=== PATIENT | male | born 1955 | race Caucasian/White ===

== ENCOUNTER 2017-11-12 08:31 | Day surgery (SDC) | payer OTHER ==
[~2017-11-12 08:31] MED LIST: EPHEDrine SULFATE 50 MG/5 ML SYG
[2017-11-12 09:24] LABS: ADD MAN DIFF? NO
[2017-11-12 09:26] LABS: WHITE BLOOD COUNT 7.4 10^3/ul (4.8-10.8)
[2017-11-12 09:26] LABS: BASOPHILS % 0.5 % (0.0-2.0); EOSINOPHILS # 0.7 10^3/ul (0.0-0.5); EOSINOPHILS % 8.8 % (0.0-7.0); HEMATOCRIT 34.6 % (42.0-52.0); HEMOGLOBIN 11.5 g/dl (14.0-18.0); LYMPHOCYTES # 1.7 10^3/ul (0.8-2.9); LYMPHOCYTES % 23.1 % (15.0-51.0); MEAN CORPUSCULAR HEMOGLOBIN 28.5 pg (29.0-33.0); MEAN CORPUSCULAR HGB CONC 33.2 g/dl (32.0-37.0); MEAN CORPUSCULAR VOLUME 85.6 fl (82.0-101.0); MEAN PLATELET VOLUME 10.9 fl (7.4-10.4); MONOCYTE # 0.7 10^3/ul (0.3-0.9); NEUTROPHIL # 4.2 10^3/ul (1.6-7.5); NEUTROPHILS % 57.5 % (39.0-77.0); PLATELET COUNT 205 10^3/UL (140-415); RED BLOOD COUNT 4.04 10^6/ul (4.70-6.10); RED CELL DISTRIBUTION WIDTH 12.7 % (11.5-14.5)
[2017-11-12] MEDS: hydrALAzine 20 MG INJ IV (09:41)
[2017-11-12 09:42] LABS: ALANINE AMINOTRANSFERASE 45 IU/L (13-69); ALBUMIN 3.7 g/dl (3.3-4.9); ALBUMIN/GLOBULIN RATIO 1.08; ALKALINE PHOSPHATASE 83 IU/L (42-121); ANION GAP 15 (8-16); ASPARTATE AMINO TRANSFERASE 36 IU/L (15-46); BILIRUBIN,INDIRECT 0.1 mg/dl (0-1.1); BILIRUBIN,TOTAL 0.1 mg/dl (0.2-1.3); CARBON DIOXIDE 28 mmol/L (21-31); CHLORIDE 106 mmol/L (97-110); GLUCOSE 84 mg/dl (70-220); TOTAL PROTEIN 7.1 g/dl (6.1-8.1)
[2017-11-12 09:43] LABS: CALCIUM 8.5 mg/dl (8.4-10.2)
[2017-11-12 09:46] LABS: BLOOD UREA NITROGEN 62 mg/dl (7-20); POTASSIUM 5.2 mmol/L (3.5-5.1); SODIUM 144 mmol/L (135-144)
[2017-11-12 09:47] LABS: INR 0.92; PARTIAL THROMBOPLASTIN TIME 29.9 Sec (25.0-35.0); PROTIME 12.4 Sec (11.9-14.9)
[2017-11-12] MEDS ORDERED: LIDOCAINE 1% (MPF) 30 ML INJ (10:24)
[2017-11-12] MEDS ORDERED: BUPIVACAINE 0.25% (MPF) 30 ML INJ (10:25)
[2017-11-12] MEDS ORDERED: CEFAZOLIN 1 GM INJ (10:44)
[2017-11-12] MEDS ORDERED: MIDAZOLAM 1 MG/ML 2 ML INJ (10:44)
[2017-11-12] MEDS ORDERED: PROPOFOL 20 ML ×2 (10:44→11:57)
[2017-11-12] MEDS ORDERED: FENTAnyl 50 MCG/ML VIAL (10:44)
[2017-11-12] MEDS ORDERED: ROPIVACAINE 0.2% 20 ML VIAL (10:45)
[2017-11-12] MEDS ORDERED: LOSARTAN 50 MG TAB PO (11:00)
[2017-11-12] MEDS ORDERED: POTASSIUM CHLORIDE (SR) 8 MEQ CAP PO (11:00)
[2017-11-12] MEDS ORDERED: ASPIRIN (EC) 81 MG TAB PO (11:00)
[2017-11-12] MEDS ORDERED: LISINOPRIL 20 MG TAB PO (11:00)
[2017-11-12] MEDS ORDERED: OXYCODONE/ACETAMINOPHEN (5/325) TAB PO ×2 (11:30)
[2017-11-12] MEDS ORDERED: HYDROmorphONE (0.2 MG/ML) 10ML SYG IV ×3 (11:30)
[2017-11-12] MEDS ORDERED: hydrALAzine 20 MG INJ IV (11:30)
[2017-11-12] MEDS ORDERED: ONDANSETRON 4 MG INJ IV (11:30)
[2017-11-12] MEDS: HEPARIN 1000 UNITS/ML 10 ML INJ (11:39)
[2017-11-12] MEDS: GELATIN SIZE 100 SPONGE (11:46)
[2017-11-12] MEDS: THROMBIN 5000 UNIT VIAL (11:47)
[2017-11-12] MEDS ORDERED: MINOXIDIL 2.5 MG TAB PO (13:00)
[2017-11-12] MEDS ORDERED: GLUCOSE GEL 15 GRAM TUBE PO ×2 (13:30)
[2017-11-12] MEDS ORDERED: GLUCOSE GEL 15 GRAM TUBE BUCCAL (13:30)
[2017-11-12] MEDS ORDERED: DEXTROSE 50% 50 ML SYRINGE IV ×2 (13:30)
[2017-11-12] MEDS ORDERED: GLUCAGON 1 MG INJ IM (13:30)
[2017-11-12] MEDS ORDERED: FUROSEMIDE 40 MG TAB PO (18:00)
[2017-11-12] MEDS ORDERED: GLIMEPIRIDE 4 MG TAB PO (18:00)
[2017-11-12] MEDS ORDERED: INSULIN GLARGINE [LANtus] 3 ML PEN SC (21:00)
[2017-11-13] MEDS ORDERED: AMLODIPINE 10 MG TAB PO (09:00)
== END 2017-11-12 13:55 | disposition home or self-care (01) ==
LOC: SDS 08:31
DX: I12.0 Hypertensive chronic kidney disease with stage 5 chronic kidney disease or end stage renal disease (principal); N18.6 End stage renal disease; E11.9 Type 2 diabetes mellitus without complications
CPT/HCPCS: 36821; 71045; 80053; 82962; 85025; 85610; 85730; 93005

== ENCOUNTER 2018-07-02 10:29 | Day surgery (SDC) | payer MEDICARE, OTHER ==
[2018-07-02] MEDS ORDERED: LIDOCAINE 1% (STERILE-PAK) 30 ML INJ (11:08)
[2018-07-02] MEDS ORDERED: GELATIN SIZE 100 SPONGE (11:08)
[2018-07-02] MEDS ORDERED: HEPARIN 1000 UNITS/ML 10 ML INJ (11:09)
[2018-07-02] MEDS ORDERED: THROMBIN 5000 UNIT VIAL (11:09)
[2018-07-02 11:30] LABS: ADD MAN DIFF? NO
[2018-07-02 11:38] LABS: WHITE BLOOD COUNT 6.5 10^3/ul (4.8-10.8)
[2018-07-02 11:38] LABS: BASOPHIL # 0.1 10^3/ul (0.0-0.1); BASOPHILS % 0.8 % (0.0-2.0); EOSINOPHILS # 0.5 10^3/ul (0.0-0.5); EOSINOPHILS % 7.5 % (0.0-7.0); HEMOGLOBIN 11.7 g/dl (14.0-18.0); LYMPHOCYTES # 2.1 10^3/ul (0.8-2.9); LYMPHOCYTES % 32.4 % (15.0-51.0); MEAN CORPUSCULAR HEMOGLOBIN 30.2 pg (29.0-33.0); MEAN CORPUSCULAR HGB CONC 33.4 g/dl (32.0-37.0); MEAN CORPUSCULAR VOLUME 90.2 fl (82.0-101.0); MEAN PLATELET VOLUME 11.1 fl (7.4-10.4); MONOCYTE # 0.6 10^3/ul (0.3-0.9); MONOCYTES % 8.9 % (0.0-11.0); NEUTROPHIL # 3.3 10^3/ul (1.6-7.5); NEUTROPHILS % 50.2 % (39.0-77.0); PLATELET COUNT 233 10^3/UL (140-415); RED BLOOD COUNT 3.88 10^6/ul (4.70-6.10); RED CELL DISTRIBUTION WIDTH 12.3 % (11.5-14.5)
[2018-07-02] MEDS ORDERED: hydrALAzine 20 MG INJ (11:43)
[2018-07-02] MEDS: LIDOCAINE 1% (MPF) 30 ML INJ INJ (11:45)
[2018-07-02 11:51] LABS: ALANINE AMINOTRANSFERASE 31 IU/L (13-69); ALBUMIN 4.5 g/dl (3.3-4.9); ALKALINE PHOSPHATASE 49 IU/L (42-121); ASPARTATE AMINO TRANSFERASE 26 IU/L (15-46); BILIRUBIN,INDIRECT 0.3 mg/dl (0-1.1); BILIRUBIN,TOTAL 0.3 mg/dl (0.2-1.3); CALCIUM 9.6 mg/dl (8.4-10.2); CARBON DIOXIDE 27 mmol/L (21-31); CHLORIDE 98 mmol/L (97-110); Estimated GFR 8 mL/min (>60); GLUCOSE 110 mg/dl (70-220); SODIUM 142 mmol/L (135-144); TOTAL PROTEIN 7.5 g/dl (6.1-8.1)
[2018-07-02] MEDS ORDERED: FENTAnyl 50 MCG/ML VIAL (11:52)
[2018-07-02] MEDS ORDERED: MIDAZOLAM 1 MG/ML 2 ML INJ (11:52)
[2018-07-02] MEDS ORDERED: ROPIVACAINE 0.2% 20 ML VIAL (11:52)
[2018-07-02] MEDS ORDERED: PROPOFOL 20 ML (11:52)
[2018-07-02 11:57] LABS: INR 0.87; PROTIME 11.9 Sec (11.9-14.9); PT RATIO 0.9
[2018-07-02 12:00] LABS: BLOOD UREA NITROGEN 71 mg/dl (7-20); CREATININE 6.68 mg/dl (0.61-1.24)
[2018-07-02] MEDS ORDERED: OXYCODONE/ACETAMINOPHEN (5/325) TAB PO ×2 (12:00)
[2018-07-02] MEDS ORDERED: hydrALAzine 20 MG INJ IV (12:00)
[2018-07-02] MEDS ORDERED: DIPHENHYDRAMINE 50 MG INJ IV (12:00)
[2018-07-02] MEDS ORDERED: MEPERIDINE 25 MG INJ IV (12:00)
[2018-07-02] MEDS ORDERED: HYDROmorphONE 1 MG/5 ML IV SYRINGE IV ×3 (12:00)
[2018-07-02] MEDS ORDERED: ONDANSETRON 4 MG INJ IV ×2 (12:00→14:00)
[2018-07-02 12:02] LABS: ANION GAP 17 (5-13)
[2018-07-02] MEDS ORDERED: CEFAZOLIN 1 GM INJ (12:29)
[2018-07-02] MEDS ORDERED: HYDROCODONE/APAP (5/325) TAB PO (14:00)
[2018-07-02] MEDS ORDERED: ACETAMINOPHEN 325 MG TAB PO (14:00)
== END 2018-07-02 15:32 | disposition home or self-care (01) ==
LOC: SDS 10:29
DX: I12.0 Hypertensive chronic kidney disease with stage 5 chronic kidney disease or end stage renal disease (principal); E11.22 Type 2 diabetes mellitus with diabetic chronic kidney disease; N18.6 End stage renal disease; Z99.2 Dependence on renal dialysis; Z79.84 Long term (current) use of oral hypoglycemic drugs; I25.10 Atherosclerotic heart disease of native coronary artery without angina pectoris
CPT/HCPCS: 36821; 71045; 80053; 82962; 85025; 85610; 85730; 93005

== ENCOUNTER 2019-01-08 20:58 | Inpatient (IN) | payer MEDICARE, OTHER ==
[2019-01-08 21:41] LABS: ABNORMAL IP MESSAGE 1; HEMATOCRIT 19.4 % (42.0-52.0); MEAN CORPUSCULAR HEMOGLOBIN 30.4 pg (29.0-33.0); MEAN CORPUSCULAR HGB CONC 33.5 g/dl (32.0-37.0); MEAN CORPUSCULAR VOLUME 90.7 fl (82.0-101.0); MEAN PLATELET VOLUME 11.4 fl (7.4-10.4); PLATELET COUNT 176 10^3/UL (140-415); POSITIVE DIFF @See below; RED BLOOD COUNT 2.14 10^6/ul (4.70-6.10); RED CELL DISTRIBUTION WIDTH 13.2 % (11.5-14.5)
[2019-01-08 21:41] LABS: WHITE BLOOD COUNT 6.2 10^3/ul (4.8-10.8)
[2019-01-08 21:46] LABS: HEMOGLOBIN 6.5 g/dl (14.0-18.0)
[2019-01-08 21:47] LABS: ADD MAN DIFF? YES
[2019-01-08 21:57] LABS: ANION GAP 14 (5-13); BLOOD UREA NITROGEN 98 mg/dl (7-20); CALCIUM 8.1 mg/dl (8.4-10.2); CARBON DIOXIDE 19 mmol/L (21-31); CHLORIDE 108 mmol/L (97-110); CREATININE 9.69 mg/dl (0.61-1.24); Estimated GFR 5 mL/min (>60); GLUCOSE 157 mg/dl (70-220); POTASSIUM 4.7 mmol/L (3.5-5.1); SODIUM 141 mmol/L (135-144)
[2019-01-08 22:19] LABS: ANISOCYTOSIS 2+ (0-0); EOSINOPHILS % (M) 11 % (0-7); GIANT THROMBO% (M) 2 % (0-0); LYMPHOCYTES #M 1.4 10^3/ul (0.8-2.9); LYMPHOCYTES % (M) 23 % (15-51); MICROCYTOSIS 1+ (0-0); MONOCYTE #M 0.1 10^3/ul (0.3-0.9); MONOCYTES % (M) 3 % (0-11); OVALOCYTES 3+ (0-0); PLATELET ESTIMATE NORMAL; POIKILOCYTOSIS 3+ (0-0); POLYCHROMASIA 1+ (0-0); SEGMENTED NEUTROPHILS (M) % 63 % (39-77); SMUDGE%M 1 % (0-0)
[2019-01-09] MEDS ORDERED: ONDANSETRON 4 MG INJ IV (00:30)
[2019-01-09] MEDS ORDERED: ACETAMINOPHEN 325 MG TAB PO ×2 (00:30→03:30)
[2019-01-09] MEDS: hydrALAzine 20 MG INJ IV ×2 (03:40→21:12)
[2019-01-09] MEDS ORDERED: GLUCOSE GEL 15 GRAM TUBE BUCCAL (04:00)
[2019-01-09] MEDS ORDERED: GLUCAGON 1 MG INJ IM (04:00)
[2019-01-09] MEDS ORDERED: GLUCOSE GEL 15 GRAM TUBE PO ×2 (04:00)
[2019-01-09] MEDS ORDERED: DEXTROSE 50% 50 ML SYRINGE IV ×2 (04:00)
[2019-01-09] MEDS: PANTOPRAZOLE (EC) 40 MG TAB PO (06:43)
[2019-01-09 07:03] LABS: ADD MAN DIFF? NO
[2019-01-09 07:05] LABS: BASOPHIL # 0.1 10^3/ul (0.0-0.1); BASOPHILS % 0.7 % (0.0-2.0); EOSINOPHILS # 0.5 10^3/ul (0.0-0.5); EOSINOPHILS % 7.3 % (0.0-7.0); HEMATOCRIT 20.8 % (42.0-52.0); HEMOGLOBIN 7.1 g/dl (14.0-18.0); LYMPHOCYTES # 1.8 10^3/ul (0.8-2.9); LYMPHOCYTES % 26.7 % (15.0-51.0); MEAN CORPUSCULAR HEMOGLOBIN 29.7 pg (29.0-33.0); MEAN CORPUSCULAR HGB CONC 34.1 g/dl (32.0-37.0); MEAN PLATELET VOLUME 11.8 fl (7.4-10.4); MONOCYTE # 0.5 10^3/ul (0.3-0.9); MONOCYTES % 6.9 % (0.0-11.0); NEUTROPHILS % 58.1 % (39.0-77.0); PLATELET COUNT 194 10^3/UL (140-415); RED BLOOD COUNT 2.39 10^6/ul (4.70-6.10); RED CELL DISTRIBUTION WIDTH 13.2 % (11.5-14.5)
[2019-01-09 07:05] LABS: WHITE BLOOD COUNT 6.8 10^3/ul (4.8-10.8)
[2019-01-09 07:33] LABS: ANION GAP 13 (5-13); BLOOD UREA NITROGEN 98 mg/dl (7-20); CALCIUM 8.2 mg/dl (8.4-10.2); CARBON DIOXIDE 17 mmol/L (21-31); CHLORIDE 113 mmol/L (97-110); CREATININE 9.38 mg/dl (0.61-1.24); Estimated GFR 6 mL/min (>60); GLUCOSE 102 mg/dl (70-220); POTASSIUM 5.5 mmol/L (3.5-5.1); SODIUM 143 mmol/L (135-144)
[2019-01-09] MEDS: INSULIN ASPART [NOVOLOG] 3 ML PEN SC ×4 (07:55→21:00)
[2019-01-09 08:26] LABS: HEPATITIS B SURFACE ANTIGEN NEGATIVE (NEGATIVE)
[2019-01-09 08:44] LABS: HEPATITIS B SURFACE ANTIBODY NEGATIVE (NEGATIVE)
[2019-01-09] MEDS ORDERED: NON-FORMULARY/PATIENT OWN MED (Sitagliptin* (Januvia*) 50 MG) PO (09:00)
[2019-01-09] MEDS: LINAGLIPTIN 5 MG TABLET PO (09:21)
[2019-01-09 11:09] LABS: IMMEDIATE SPIN CROSSMATCH 1 1
[2019-01-09] MEDS: LOSARTAN 50 MG TAB PO ×2 (14:26→20:22)
[2019-01-09] MEDS: LISINOPRIL 20 MG TAB PO (14:27)
[2019-01-09] MEDS: INSULIN GLARGINE [LANTus] (100 UNITS/ML) SYG SC (21:26)
[2019-01-09 22:19] LABS: OCCULT BLOOD STOOL NEGATIVE (NEGATIVE)
[2019-01-10] MEDS: ACCU-CHEK XX (01:52)
[2019-01-10] MEDS: DIAZEPAM 5 MG/ML SYG IV (02:24)
[2019-01-10] MEDS: PANTOPRAZOLE (EC) 40 MG TAB PO (05:48)
[2019-01-10] MEDS: morphine 2 MG INJ IV (05:49)
[2019-01-10] MEDS: INSULIN ASPART [NOVOLOG] 3 ML PEN SC ×4 (07:55→21:35)
[2019-01-10 08:24] LABS: ADD MAN DIFF? NO; HAAIG REFLEX REFLEX FILED
[2019-01-10 08:39] LABS: BASOPHILS % 0.6 % (0.0-2.0); EOSINOPHILS # 0.2 10^3/ul (0.0-0.5); EOSINOPHILS % 3.4 % (0.0-7.0); HEMATOCRIT 24.2 % (42.0-52.0); HEMOGLOBIN 8.4 g/dl (14.0-18.0); LYMPHOCYTES # 1.2 10^3/ul (0.8-2.9); LYMPHOCYTES % 18.2 % (15.0-51.0); MEAN CORPUSCULAR HEMOGLOBIN 29.9 pg (29.0-33.0); MEAN CORPUSCULAR HGB CONC 34.7 g/dl (32.0-37.0); MEAN CORPUSCULAR VOLUME 86.1 fl (82.0-101.0); MEAN PLATELET VOLUME 11.8 fl (7.4-10.4); MONOCYTE # 0.4 10^3/ul (0.3-0.9); MONOCYTES % 6.4 % (0.0-11.0); NEUTROPHIL # 4.7 10^3/ul (1.6-7.5); NEUTROPHILS % 70.9 % (39.0-77.0); PLATELET COUNT 216 10^3/UL (140-415); RED BLOOD COUNT 2.81 10^6/ul (4.70-6.10); RED CELL DISTRIBUTION WIDTH 13.2 % (11.5-14.5)
[2019-01-10 08:39] LABS: WHITE BLOOD COUNT 6.6 10^3/ul (4.8-10.8)
[2019-01-10 09:00] LABS: HEMOGLOBIN A1C 6.4 % (0-5.9)
[2019-01-10] MEDS: LOSARTAN 50 MG TAB PO ×2 (09:00→21:24)
[2019-01-10 09:10] LABS: ANION GAP 11 (5-13); BLOOD UREA NITROGEN 61 mg/dl (7-20); CALCIUM 8.3 mg/dl (8.4-10.2); CARBON DIOXIDE 26 mmol/L (21-31); CHLORIDE 100 mmol/L (97-110); Estimated GFR 8 mL/min (>60); GLUCOSE 99 mg/dl (70-220); PHOSPHORUS 5.8 mg/dl (2.5-4.9); POTASSIUM 4.6 mmol/L (3.5-5.1); SODIUM 137 mmol/L (135-144); URIC ACID 5.5 mg/dl (3.1-7.9)
[2019-01-10 09:14] LABS: IRON 87 ug/dl (35-150)
[2019-01-10] MEDS: LINAGLIPTIN 5 MG TABLET PO (09:22)
[2019-01-10 09:24] LABS: % IRON SATURATION 33 % SAT (22-52); TOTAL IRON BINDING CAPACITY 263 ug/dl (241-421)
[2019-01-10 10:11] LABS: HEPATITIS B SURFACE ANTIGEN NEGATIVE (NEGATIVE)
[2019-01-10 10:29] LABS: HEPATITIS B CORE ANTIBODY NEGATIVE (NEGATIVE); HEPATITIS C VIRAL ANTIBODY NEGATIVE (NEGATIVE)
[2019-01-10] MEDS: SEVELAMER CARBONATE 800 MG TABLET PO ×2 (11:50→18:13)
[2019-01-10] MEDS: MULTIVIT/CA CARB/B CMPLX/FA TAB PO (14:15)
[2019-01-10] MEDS: EPOETIN ALFA-EPBX (ESRD) 4,000 UNIT/ML VIAL SC (21:30)
[2019-01-10] MEDS: INSULIN GLARGINE [LANTus] (100 UNITS/ML) SYG SC (21:34)
[2019-01-11] MEDS: ACCU-CHEK XX ×2 (02:00→20:35)
[2019-01-11] MEDS: PANTOPRAZOLE (EC) 40 MG TAB PO (05:39)
[2019-01-11 05:40] LABS: ADD MAN DIFF? NO
[2019-01-11 05:50] LABS: WHITE BLOOD COUNT 5.6 10^3/ul (4.8-10.8)
[2019-01-11 05:50] LABS: BASOPHILS % 0.5 % (0.0-2.0); EOSINOPHILS # 0.5 10^3/ul (0.0-0.5); EOSINOPHILS % 8.1 % (0.0-7.0); HEMATOCRIT 24.2 % (42.0-52.0); HEMOGLOBIN 8.4 g/dl (14.0-18.0); LYMPHOCYTES # 1.6 10^3/ul (0.8-2.9); LYMPHOCYTES % 27.9 % (15.0-51.0); MEAN CORPUSCULAR HGB CONC 34.7 g/dl (32.0-37.0); MEAN CORPUSCULAR VOLUME 86.4 fl (82.0-101.0); MEAN PLATELET VOLUME 11.2 fl (7.4-10.4); MONOCYTE # 0.6 10^3/ul (0.3-0.9); MONOCYTES % 10.1 % (0.0-11.0); NEUTROPHIL # 2.9 10^3/ul (1.6-7.5); PLATELET COUNT 202 10^3/UL (140-415); RED CELL DISTRIBUTION WIDTH 13.1 % (11.5-14.5)
[2019-01-11 06:30] LABS: PHOSPHORUS 5.4 mg/dl (2.5-4.9)
[2019-01-11 06:44] LABS: ANION GAP 12 (5-13); BLOOD UREA NITROGEN 45 mg/dl (7-20); CALCIUM 8.9 mg/dl (8.4-10.2); CARBON DIOXIDE 26 mmol/L (21-31); CHLORIDE 101 mmol/L (97-110); CREATININE 5.06 mg/dl (0.61-1.24); Estimated GFR 12 mL/min (>60); GLUCOSE 93 mg/dl (70-220); POTASSIUM 4.4 mmol/L (3.5-5.1); SODIUM 139 mmol/L (135-144)
[2019-01-11] MEDS: INSULIN ASPART [NOVOLOG] 3 ML PEN SC ×4 (08:00→20:35)
[2019-01-11] MEDS: SEVELAMER CARBONATE 800 MG TABLET PO ×3 (08:25→17:29)
[2019-01-11] MEDS: LINAGLIPTIN 5 MG TABLET PO (08:25)
[2019-01-11] MEDS: LOSARTAN 50 MG TAB PO ×2 (08:25→20:31)
[2019-01-11] MEDS: MULTIVIT/CA CARB/B CMPLX/FA TAB PO (08:25)
[2019-01-11] MEDS: INSULIN GLARGINE [LANTus] (100 UNITS/ML) SYG SC (20:35)
[2019-01-12] MEDS: PANTOPRAZOLE (EC) 40 MG TAB PO (05:26)
[2019-01-12 05:33] LABS: ADD MAN DIFF? NO
[2019-01-12 05:37] LABS: WHITE BLOOD COUNT 5.9 10^3/ul (4.8-10.8)
[2019-01-12 05:37] LABS: BASOPHIL # 0.1 10^3/ul (0.0-0.1); BASOPHILS % 0.9 % (0.0-2.0); EOSINOPHILS # 0.5 10^3/ul (0.0-0.5); EOSINOPHILS % 7.7 % (0.0-7.0); HEMATOCRIT 23.8 % (42.0-52.0); LYMPHOCYTES # 1.8 10^3/ul (0.8-2.9); LYMPHOCYTES % 29.8 % (15.0-51.0); MEAN CORPUSCULAR HEMOGLOBIN 29.3 pg (29.0-33.0); MEAN CORPUSCULAR HGB CONC 33.6 g/dl (32.0-37.0); MEAN CORPUSCULAR VOLUME 87.2 fl (82.0-101.0); MEAN PLATELET VOLUME 11.5 fl (7.4-10.4); MONOCYTE # 0.6 10^3/ul (0.3-0.9); MONOCYTES % 10.1 % (0.0-11.0); NEUTROPHILS % 51.3 % (39.0-77.0); PLATELET COUNT 198 10^3/UL (140-415); RED BLOOD COUNT 2.73 10^6/ul (4.70-6.10); RED CELL DISTRIBUTION WIDTH 13.3 % (11.5-14.5)
[2019-01-12 06:14] LABS: ANION GAP 12 (5-13); BLOOD UREA NITROGEN 67 mg/dl (7-20); CALCIUM 8.6 mg/dl (8.4-10.2); CARBON DIOXIDE 26 mmol/L (21-31); CHLORIDE 101 mmol/L (97-110); CREATININE 6.93 mg/dl (0.61-1.24); Estimated GFR 8 mL/min (>60); GLUCOSE 117 mg/dl (70-220); POTASSIUM 4.6 mmol/L (3.5-5.1); SODIUM 139 mmol/L (135-144)
[2019-01-12] MEDS: INSULIN ASPART [NOVOLOG] 3 ML PEN SC ×4 (08:00→20:58)
[2019-01-12] MEDS: LOSARTAN 50 MG TAB PO ×2 (08:40→20:52)
[2019-01-12] MEDS: MULTIVIT/CA CARB/B CMPLX/FA TAB PO (08:50)
[2019-01-12] MEDS: SEVELAMER CARBONATE 800 MG TABLET PO ×3 (08:51→17:32)
[2019-01-12] MEDS: LINAGLIPTIN 5 MG TABLET PO (08:51)
[2019-01-12] MEDS: EPOETIN ALFA-EPBX (ESRD) 4,000 UNIT/ML VIAL SC (17:33)
[2019-01-12] MEDS: INSULIN GLARGINE [LANTus] (100 UNITS/ML) SYG SC (20:57)
[2019-01-12] MEDS: ACCU-CHEK XX (20:58)
[2019-01-13] MEDS: PANTOPRAZOLE (EC) 40 MG TAB PO (05:51)
[2019-01-13] MEDS: INSULIN ASPART [NOVOLOG] 3 ML PEN SC ×2 (08:00→12:00)
[2019-01-13] MEDS: MULTIVIT/CA CARB/B CMPLX/FA TAB PO (08:11)
[2019-01-13] MEDS: POLYETHYLENE GLYCOL 17 GM PACKET GTB ×2 (08:11→09:26)
[2019-01-13] MEDS: LINAGLIPTIN 5 MG TABLET PO (08:11)
[2019-01-13] MEDS: LOSARTAN 50 MG TAB PO (08:12)
[2019-01-13] MEDS: SEVELAMER CARBONATE 800 MG TABLET PO ×2 (08:12→12:52)
[2019-01-13 12:29] LABS: ANION GAP 16 (5-13); BLOOD UREA NITROGEN 57 mg/dl (7-20); CALCIUM 9.1 mg/dl (8.4-10.2); CARBON DIOXIDE 26 mmol/L (21-31); CHLORIDE 99 mmol/L (97-110); CREATININE 6.39 mg/dl (0.61-1.24); Estimated GFR 9 mL/min (>60); GLUCOSE 115 mg/dl (70-220); POTASSIUM 4.6 mmol/L (3.5-5.1); SODIUM 141 mmol/L (135-144)
== END 2019-01-13 14:10 | disposition home or self-care (01) | DRG 682 ==
LOC: E/R 20:58 → TEL 01-09 00:32 → 2NE 01-10 20:25
PROC: 30233N1 Transfusion of Nonautologous Red Blood Cells into Peripheral Vein, Percutaneous Approach (ICD-10-PCS; principal; 2019-01-09)
PROC: 5A1D70Z Performance of Urinary Filtration, Intermittent, Less than 6 Hours Per Day (ICD-10-PCS; 2019-01-09)
DX: I12.0 Hypertensive chronic kidney disease with stage 5 chronic kidney disease or end stage renal disease (principal); N18.6 End stage renal disease; E87.2 Acidosis; E11.22 Type 2 diabetes mellitus with diabetic chronic kidney disease; D63.1 Anemia in chronic kidney disease; Z99.2 Dependence on renal dialysis; E87.5 Hyperkalemia; E83.51 Hypocalcemia; E83.39 Other disorders of phosphorus metabolism
CPT/HCPCS: 36430; 71045; 80048; 82270; 82652; 82962; 83036; 83540; 84100; 84560; 85025; 86704; 86706; 86709; 86803; 86850; 86900; 86901; 86920; 87081; 87340; 90935; 93005; 99285-25; G0378